=== PATIENT | female | born 1950 | race African-American/Black ===

== ENCOUNTER 2016-08-23 14:30 | Outpatient (CLI) ==
[2016-08-23 15:09] VITALS: BMI 29.7
== END 2016-08-23 14:31 | disposition home or self-care (01) ==
LOC: CAR 14:30
PROVIDERS: ATTEND Nurse Practitioner Family
DX: R03.0 Elevated blood-pressure reading, without diagnosis of hypertension (principal); R42 Dizziness and giddiness; R11.0 Nausea; I49.9 Cardiac arrhythmia, unspecified
CPT/HCPCS: 93005; 93010

== ENCOUNTER 2016-08-23 14:56 | Observation (INO) ==
[2016-08-23] MEDS ORDERED: SODIUM CHLORIDE 1,000 ML IV STA (15:02)
--- NOTE | 2016-08-23 15:07 | ED.PDOC ---
General ED Provider: Dr. KATE AGARWAL JR Chief Complaint: Dizziness Stated Complaint: Pt began getting dizzy this am, took bp at home and it was 164 /103. Went to the clinic and blood pressure was high. Was sent to get an ekg done. When they went to lay her back she states the room started spinning again. has had a banana and a halo(orange) this am [End]short of breath yesterday dizzy when lying down had been walking, in [place] yesterday for brother's surgery short of breath while walking to hospital, drove home yesterday 6p to 1230am dizzi early in morning when up better after arose for day but still present note elevated blood pressure Time Seen by Physician: 15:08 Mode of Arrival: Wheelchair Information Source: Patient Exam Limitations: No limitations Primary Care Provider: ANDRES MCCARTHY Nursing and Triage Documentation Reviewed and Agree: No Review of Systems - Review Of Systems Constitutional: Reports: Malaise Eyes: Reports: No symptoms Ears, Nose, Mouth, Throat: Reports: No symptoms Respiratory: Reports: Short of air Cardiac: Reports: No symptoms GI: Reports: No symptoms : Reports: No symptoms Musculoskeletal: Reports: No symptoms Skin: Reports: No symptoms Neurological: Reports: Weakness, Other (dizziness) Endocrine: Reports: No symptoms Hematologic/Lymphatic: Reports: No symptoms All Other Systems: Other Past Medical History - Past Medical History Endocrine: Reports: None Cardiovascular: Reports: Hypertension Respiratory: Reports: None Hematological: Reports: None Gastrointestinal: Reports: None Genitourinary: Reports: None Neuro/Psych: Reports: None Musculoskeletal: Reports: Other Cancer: Reports: None Last Menstrual Period: none - Surgical History General Surgical History: Reports: Hysterectomy, Orthopedic (shoulder spur, toes ), Back Surgery (neck) - Family History Family History: Reports: Unknown - Social History Smoking Status: Never smoker Hx Substance Use: No Alcohol Screening: None - Immunizations Tetanus Shot up to Date: No Physical Exam - Physical Exam Appearance: Well-appearing Ill-appearing: Mild Eyes: FREDA, EOMI, Conjunctiva clear ENT: Ears normal, Nose normal, Oropharynx normal Neck: Supple Respiratory: Airway patent, Breath sounds clear, Breath sounds equal, Respirations nonlabored Cardiovascular: RRR, Pulses normal, No rub, No murmur GI/: Soft, Nontender, No masses, Bowel sounds normal, No Organomegaly Musculoskeletal: Normal strength, ROM intact, No edema, No calf tenderness Skin: Warm, Dry, Normal color Neurological: Sensation intact, Motor intact, Reflexes intact, Cranial nerves intact, Alert, Oriented Interpretation - EKG Interpretation Time of EKG #1: 15:06 Rate: Keo Rhythm: Sinus (59) ST Segment: Other (bifascicular block) Physician Notification - Case Discussed Physician Notified: dr mccarthy notes ekg is unchanged from past ekgs Critical Care Note - Critical Care Note Total Time (mins): 10 Course - Course Hematology/Chemistry: 08/23/16 15:00 08/23/16 15:00 Orders, Labs, Meds: Lab Review 08/23/16 08/23/16 15:00 15:02 WBC 8.64 RBC 4.93 Hgb 14.9 Hct 44.4 MCV 90.1 MCH 30.2 MCHC 33.6 RDW Coeff of Peter 12.1 Plt Count 272 Immature Gran % (Auto) 0.2 Neut % (Auto) 72.6 Lymph % (Auto) 21.6 Chicot % (Auto) 4.9 Eos % (Auto) 0.5 Baso % (Auto) 0.2 Immature Gran # (Auto) 0.0 Neut # 6.3 Lymph # 1.9 Chicot # 0.4 Eos # 0.0 Baso # 0.0 D-Dimer 0.34 Puncture Site Rrad O2 Saturation 98.0 ABG pH 7.436 ABG pCO2 33.6 L ABG pO2 95.0 ABG HCO3 22.6 ABG Total CO2 24 ABG Base Excess -2 Ashish Test + FiO2 % 21.0 Sodium 142 Potassium 3.6 Chloride 106 Carbon Dioxide 26 Anion Gap 13.6 BUN 10 Creatinine 0.82 Estimated GFR (MDRD) 84.00 BUN/Creatinine Ratio 12.19 Glucose 104 Calcium 10.2 Total Bilirubin 0.54 AST 28 ALT 22 Alkaline Phosphatase 91 Total Creatine Kinase 296 CK-MB (CK-2) 2.4 CK-MB (CK-2) % 0.08006 Troponin I < 0.0100 B-Natriuretic Peptide 41 Total Protein 7.9 Albumin 4.3 Globulin 3.6 Albumin/Globulin Ratio 1.19 Orders Category Date Time Status ADMIT PATIENT INPATIENT .TO [facility] (MONITORED BED) ADMISSION 08/23/16 16: 53 Active ABG DRAW REQUEST Stat CARDIO 08/23/16 15:03 Completed EKG-(IP & OP ONLY) DAILY CARDIO 08/24/16 06:00 Ordered EKG-(IP & OP ONLY) DAILY CARDIO 08/25/16 06:00 Ordered EKG-(IP & OP ONLY) DAILY CARDIO 08/26/16 06:00 Ordered ACTIVITY .Early Mobilization for VTE Prevention CARE 08/23/16 16:54 Active INTAKE & OUTPUT Q8HR CARE 08/23/16 16:53 Active INTAKE & OUTPUT Q8HR CARE 08/23/16 16:54 Completed TELEMETRY MONITORING TELE CARE 08/23/16 16:54 Active VITAL SIGNS Q8HR CARE 08/23/16 16:54 Active CARDIAC DIET DIETARY 08/23/16 Dinner Ordered ED ELECTRICAL LINEMAN APPLIED .ONCE EMERGENCY 08/23/16 15:02 Active ED IV/MEDIPORT/POWERPORT .ONCE EMERGENCY 08/23/16 15:02 Active ABG Stat LAB 08/23/16 15:02 Completed B-TYPE NATRIURETIC PEPTIDE Stat LAB 08/23/16 15:00 Completed CBC W/ AUTO DIFF DAILY@0600 LAB 08/24/16 06:00 Ordered CBC W/ AUTO DIFF DAILY@0600 LAB 08/25/16 06:00 Ordered CBC W/ AUTO DIFF DAILY@0600 LAB 08/26/16 06:00 Ordered CBC W/ AUTO DIFF DAILY@0600 LAB 08/27/16 06:00 Ordered CBC W/ AUTO DIFF DAILY@0600 LAB 08/28/16 06:00 Ordered CBC W/ AUTO DIFF DAILY@0600 LAB 08/29/16 06:00 Ordered CBC W/ AUTO DIFF DAILY@0600 LAB 08/30/16 06:00 Ordered CBC W/ AUTO DIFF DAILY@0600 LAB 08/31/16 06:00 Ordered CBC W/ AUTO DIFF DAILY@0600 LAB 09/01/16 06:00 Ordered CBC W/ AUTO DIFF DAILY@0600 LAB 09/02/16 06:00 Ordered CBC W/ AUTO DIFF DAILY@0600 LAB 09/03/16 06:00 Ordered CBC W/ AUTO DIFF DAILY@0600 LAB 09/04/16 06:00 Ordered CBC W/ AUTO DIFF DAILY@0600 LAB 09/05/16 06:00 Ordered CBC W/ AUTO DIFF DAILY@0600 LAB 09/06/16 06:00 Ordered CBC W/ AUTO DIFF DAILY@0600 LAB 09/07/16 06:00 Ordered CBC W/ AUTO DIFF DAILY@0600 LAB 09/08/16 06:00 Ordered CBC W/ AUTO DIFF DAILY@0600 LAB 09/09/16 06:00 Ordered CBC W/ AUTO DIFF DAILY@0600 LAB 09/10/16 06:00 Ordered CBC W/ AUTO DIFF DAILY@0600 LAB 09/11/16 06:00 Ordered CBC W/ AUTO DIFF DAILY@0600 LAB 09/12/16 06:00 Ordered CBC W/ AUTO DIFF Stat LAB 08/23/16 15:00 Completed COMPREHENSIVE METABOLIC PANEL DAILY@0600 LAB 08/24/16 06:00 Ordered COMPREHENSIVE METABOLIC PANEL DAILY@0600 LAB 08/25/16 06:00 Ordered COMPREHENSIVE METABOLIC PANEL DAILY@0600 LAB 08/26/16 06:00 Ordered COMPREHENSIVE METABOLIC PANEL DAILY@0600 LAB 08/27/16 06:00 Ordered COMPREHENSIVE METABOLIC PANEL DAILY@0600 LAB 08/28/16 06:00 Ordered COMPREHENSIVE METABOLIC PANEL DAILY@0600 LAB 08/29/16 06:00 Ordered COMPREHENSIVE METABOLIC PANEL DAILY@0600 LAB 08/30/16 06:00 Ordered COMPREHENSIVE METABOLIC PANEL DAILY@0600 LAB 08/31/16 06:00 Ordered COMPREHENSIVE METABOLIC PANEL DAILY@0600 LAB 09/01/16 06:00 Ordered COMPREHENSIVE METABOLIC PANEL DAILY@0600 LAB 09/02/16 06:00 Ordered COMPREHENSIVE METABOLIC PANEL DAILY@0600 LAB 09/03/16 06:00 Ordered COMPREHENSIVE METABOLIC PANEL DAILY@0600 LAB 09/04/16 06:00 Ordered COMPREHENSIVE METABOLIC PANEL DAILY@0600 LAB 09/05/16 06:00 Ordered COMPREHENSIVE METABOLIC PANEL DAILY@0600 LAB 09/06/16 06:00 Ordered COMPREHENSIVE METABOLIC PANEL DAILY@0600 LAB 09/07/16 06:00 Ordered COMPREHENSIVE METABOLIC PANEL DAILY@0600 LAB 09/08/16 06:00 Ordered COMPREHENSIVE METABOLIC PANEL DAILY@0600 LAB 09/09/16 06:00 Ordered COMPREHENSIVE METABOLIC PANEL DAILY@0600 LAB 09/10/16 06:00 Ordered COMPREHENSIVE METABOLIC PANEL DAILY@0600 LAB 09/11/16 06:00 Ordered COMPREHENSIVE METABOLIC PANEL DAILY@0600 LAB 09/12/16 06:00 Ordered COMPREHENSIVE METABOLIC PANEL Stat LAB 08/23/16 15:00 Completed CREATINE KINASE Q8H LAB 08/23/16 23:00 Ordered CREATINE KINASE Q8H LAB 08/24/16 07:00 Ordered CREATINE KINASE Stat LAB 08/23/16 15:00 Completed D-DIMER Stat LAB 08/23/16 15:00 Completed TROPONIN I Q8H LAB 08/23/16 23:00 Ordered TROPONIN I Q8H LAB 08/24/16 07:00 Ordered TROPONIN I Stat LAB 08/23/16 15:00 Completed 0.9 % Sodium Chloride [Saline Flush] MEDS 08/23/16 15:02 Active 1 syr IVF PRN PRN Acetaminophen [Tylenol] MEDS 08/23/16 16:54 Active 650 mg PO Q4H PRN Amlodipine Besylate [Norvasc] MEDS 08/23/16 21:00 Once 5 mg PO ONCE ONE Amlodipine Besylate [Norvasc] MEDS 08/23/16 16:51 Discontinued 5 mg PO ONCE STA Enalaprilat Dihydrate [Vasotec IV] MEDS 08/23/16 16:21 Discontinued 1.25 mg IVP ONCE STA RESUSCITATION STATUS Routine OTHERS 08/23/16 16:53 Ordered CHEST, 1V AP ONLY Stat RADS 08/23/16 15:02 Completed Medications Generic Name Dose Route Start Last Admin Trade Name Freq PRN Reason Stop Dose Admin Acetaminophen 650 mg 08/23/16 16:54 Tylenol PO Q4H PRN Mild Pain Amlodipine Besylate 5 mg 08/23/16 21:00 Norvasc PO 08/23/16 21:01 ONCE ONE Diazepam 2 mg 08/23/16 21:00 Valium PO 08/23/16 21:01 ONCE ONE Meclizine HCl 12.5 mg 08/23/16 21:00 Antivert PO 08/23/16 21:01 ONCE ONE Non-Formulary Medication 50,000 unit 08/30/16 09:00 Cholecalciferol (Vitamin D3) [Vitamin D3] PO WEEKLY JENNIFER Non-Formulary Medication 1 each 08/24/16 09:00 Non-Formulary Medication PO DAILY JENNIFER Rosuvastatin Calcium 10 mg 08/24/16 09:00 Crestor PO DAILY JENNIFER Sodium Chloride 1 syr 08/23/16 15:02 08/23/16 16:45 Saline Flush IVF 1 syr PRN PRN Administration To flush IV Discontinued Medications Generic Name Dose Route Start Last Admin Trade Name Freq PRN Reason Stop Dose Admin Amlodipine Besylate 5 mg 08/23/16 16:51 08/23/16 17:06 Norvasc PO 08/23/16 16:52 5 mg ONCE STA Administration Enalaprilat 1.25 mg 08/23/16 16:21 08/23/16 16:42 Vasotec Iv IVP 08/23/16 16:22 1.25 mg ONCE STA Administration Vital Signs: Temp Pulse Resp BP Pulse Ox 08/23/16 14:56 97.4 F L 70 18 210/97 H 98 SHAI Risk Score SHAI Risk Score: Risk Score Odds of by 30D 0 0.1 (0.1-0.2) 1 0.3 (0.2-0.3) 2 0.4 (0.3-0.5) 3 0.7 (0.6-0.9) 4 1.2 (1.0-1.5) 5 2.2 (1.9-2.6) 6 3.0 (2.5-3.6) 7 4.8 (3.8-6.1) Departure - Departure Time of Disposition: 19:29 Disposition: ADMITTED INPATIENT Discharge Problem: Dizziness Condition: Good Pt referred to PMD for follow-up: Yes (admit dr shari ennis) Allergies/Adverse Reactions: Allergies No Known Allergies Allergy (Verified 08/23/16 15:02) Home Medications: Ambulatory Orders Cholecalciferol (Vitamin D3) [Vitamin D3] 50,000 unit PO WEEKLY 08/23/16 Rosuvastatin Calcium [Crestor] 10 mg PO DAILY 08/23/16 Trandolapril/Verapamil HCl [Tarka Er 2-240 Mg Tablet] 1 each PO DAILY 08/23/16
[2016-08-23 15:09] VITALS: BMI 29.7
[2016-08-23 15:13] LABS: BASOPHILS % (AUTO) 0.2 % (0.0-3.0); EOSINOPHILS % (AUTO) 0.5 % (0.0-7.0); HEMATOCRIT 44.4 % (37.0-47.0); HEMOGLOBIN 14.9 g/dl (12.0-16.0); IMMATURE GRANULOCYTE % (AUTO) 0.2 % (0.0-5.0); LYMPHOCYTES # (AUTO) 1.9 K/uL (0.60-3.4); LYMPHOCYTES % (AUTO) 21.6 (10.0-50.0); MEAN CORPUSCULAR HEMOGLOBIN 30.2 pg (27.0-31.0); MEAN CORPUSCULAR HGB CONC 33.6 (31.8-35.4); MEAN CORPUSCULAR VOLUME 90.1 fl (81.0-99.0); MONOCYTES # (AUTO) 0.4 K/uL (0.4-2.0); MONOCYTES % (AUTO) 4.9 (0-10); NEUTROPHILS # (AUTO) 6.3 K/ul (2.0-6.9); NEUTROPHILS % (AUTO) 72.6; PLATELET COUNT 272 10^3/uL (140-440); RED BLOOD COUNT 4.93 10^6/ul (4.20-5.40); WHITE BLOOD COUNT 8.64 K/ul (4.6-10.2)
--- NOTE | 2016-08-23 15:33 | DI ---
EXAM: Single frontal view of the chest HISTORY: Chest pain. COMPARISON: Chest x-ray 09/27/2014 FINDINGS: The cardiomediastinal silhouette is unchanged. There is no pneumothorax or pleural effusi on. There is a calcified granuloma in the right lower lung. There is no consolidation, nodule or m ass. The osseous structures are unremarkable. IMPRESSION: No acute cardiopulmonary process.
[2016-08-23 15:34] LABS: ABG BASE EXCESS -2 (-2.0-2.0); ABG HCO3 22.6 (22.0-26.0); ABG PCO2 33.6 mmHg (35-45); ABG PH 7.436 (7.35-7.45); ABG TCO2 24 (22.0-28.0)
[2016-08-23 15:57] LABS: ALANINE AMINOTRANSFERASE 22 U/L (12-78); ALBUMIN 4.3 g/dL (3.4-5.0); ALBUMIN/GLOBULIN RATIO 1.19; ALKALINE PHOSPHATASE 91 U/L (53-141); ANION GAP 13.6; ASPARTATE AMINO TRANSFERASE 28 U/L (15-37); BILIRUBIN,TOTAL 0.54 mg/dL (0.00-1.20); BLOOD UREA NITROGEN 10 mg/dL (7-18); BUN/CREATININE RATIO 12.19; CALCIUM 10.2 mg/dL (8.2-10.2); CARBON DIOXIDE 26 mmol/L (23-31); CHLORIDE 106 mmol/L (98-107); CREATINE KINASE 296 U/L; CREATININE 0.82 mg/dL (0.60-1.30); GLUCOSE 104 mg/dL (82-115); POTASSIUM 3.6 mmol/L (3.5-5.10); SODIUM 142 mmol/L (136-145); TOTAL PROTEIN 7.9 g/dL (5.8-8.1)
[2016-08-23 16:05] LABS: CREATINE KINASE MB 2.4 ng/ml (0.0-3.6)
[2016-08-23] MEDS ORDERED: VASOTEC IV IVP STA (16:21)
[2016-08-23] MEDS ORDERED: NORVASC PO STA (16:51)
[2016-08-23] MEDS ORDERED: TYLENOL PO PRN (16:54)
[2016-08-23] MEDS ORDERED: VALIUM ONE (20:34)
[2016-08-23] MEDS ORDERED: VALIUM PO ONE (21:00)
[2016-08-23] MEDS ORDERED: ANTIVERT PO ONE (21:00)
[2016-08-23] MEDS ORDERED: NORVASC PO ONE (21:00)
[2016-08-23 23:18] LABS: CREATINE KINASE 249 U/L; CREATINE KINASE MB 2.1 ng/ml (0.0-3.6)
[2016-08-24 07:08] LABS: BASOPHILS % (AUTO) 0.6 % (0.0-3.0); EOSINOPHILS # (AUTO) 0.1 K/ul (0.0-0.7); HEMATOCRIT 43.6 % (37.0-47.0); HEMOGLOBIN 14.6 g/dl (12.0-16.0); IMMATURE GRANULOCYTE % (AUTO) 0.3 % (0.0-5.0); LYMPHOCYTES # (AUTO) 1.5 K/uL (0.60-3.4); LYMPHOCYTES % (AUTO) 23.5 (10.0-50.0); MEAN CORPUSCULAR HEMOGLOBIN 30.4 pg (27.0-31.0); MEAN CORPUSCULAR HGB CONC 33.5 (31.8-35.4); MEAN CORPUSCULAR VOLUME 90.8 fl (81.0-99.0); MONOCYTES # (AUTO) 0.5 K/uL (0.4-2.0); MONOCYTES % (AUTO) 7.7 (0-10); NEUTROPHILS # (AUTO) 4.3 K/ul (2.0-6.9); NEUTROPHILS % (AUTO) 65.9; PLATELET COUNT 255 10^3/uL (140-440); WHITE BLOOD COUNT 6.46 K/ul (4.6-10.2)
[2016-08-24 07:28] LABS: ALBUMIN 3.8 g/dL (3.4-5.0); ALBUMIN/GLOBULIN RATIO 1.09; ANION GAP 13.5; BILIRUBIN,TOTAL 0.49 mg/dL (0.00-1.20); CALCIUM 9.9 mg/dL (8.2-10.2); CREATININE 0.9 mg/dL (0.60-1.30); POTASSIUM 3.5 mmol/L (3.5-5.10); TOTAL PROTEIN 7.3 g/dL (5.8-8.1)
[2016-08-24 07:44] LABS: TROPONIN I 0.013 ng/ml (0.0000-0.4000)
[2016-08-24 07:46] LABS: CREATINE KINASE MB 1.5 ng/ml (0.0-3.6)
[2016-08-24] MEDS ORDERED: ZOFRAN 4 MG/2 ML IVP STA (08:21)
[2016-08-24] MEDS ORDERED: NORVASC PO SCH (09:00)
[2016-08-24] MEDS ORDERED: VERAPAMIL HCL PO SCH ×21 (09:00)
[2016-08-24] MEDS ORDERED: BETAPACE PO SCH (09:00)
[2016-08-24] MEDS ORDERED: COZAAR PO SCH (09:00)
[2016-08-24] MEDS ORDERED: NON-FORMULARY MEDICATION PO SCH ×22 (09:00)
[2016-08-24] MEDS ORDERED: TRANDOLAPRIL PO SCH ×21 (09:00)
[2016-08-24 10:03] VITALS: BP 146/76; TEMP 97.8
--- NOTE | 2016-08-24 10:30 | HP ---
DATE OF SERVICE: 08/23/16 REASON FOR HOSPITALIZATION: Dizziness and shortness of breath with exertion and Severe hypertension HISTORY OF PRESENT ILLNESS: The patient is a 66 year old black female was seen in the emergency room after she was evaluated for dizziness in the [facility]. The patient was noted to have extra beats or skipped beats on auscultation so she was sent for EKG and the EKG was reported as abnormal with RBB, LVH and she ended up in the emergency room with hypertension, dizziness and abnormal EKG. On further evaluation in the emergency room that patient's cardiac markers were negative. The patient has sinus rhythm with RBB type of pattern even EKG's in done in the past. REVIEW OF SYSTEMS: CONSTITUTIONAL: No night sweats. Fatigue. No fever or chills. HEENT: Eyes: No visual changes. No eye pain. No eye discharge. ENT: No runny nose. No epistaxis. No sinus pain. No sore throat. No odynophagia. No ear pain. No congestion. RESPIRATORY: No cough, no congestion. No hemoptysis. CARDIOVASCULAR: No angina symptoms. No CHF symptoms. No atypical chest pain for CAD. No palpitations. Shortness of breath on exertion. No PND. No orthopnea. No exertional chest discomfort. GASTROINTESTINAL: No abdominal pain. Mild nausea. No vomiting. No diarrhea or constipation. No hematemesis. No hematochezia. GENITOURINARY: No urgency. No frequency. No dysuria. No hematuria. No obstructive symptoms. No discharge. No pain. No significant abnormal bleeding. MUSCULOSKELETAL: No musculoskeletal pain. No joint swelling. No arthritis. NEUROLOGICAL: No headache. No neck pain. No syncope. No seizures. Mild dizziness and some nausea with it and also with the head movement. PSYCHIATRIC: Not anxious. No depression. No suicidal thoughts. No homicidal thoughts. SKIN: No rash. No lesions. No wounds. ENDOCRINE: No unexplained weight loss. No weight gain. HEMATOLOGIC/LYMPHATIC: No anemia. No purpura. No petechiae. No prolonged or excessive bleeding. No palpable lymph nodes. PERSONAL/FAMILY/SOCIAL HISTORY: The patient lives by herself. No smoker, no alcohol abuse and does all activity of daily living. Independent and intelligent PAST MEDICAL/SURGICAL PROBLEMS: Hysterectomy Generalized osteoarthritis Hypertension Lymphedema of the legs, resolved MEDICATIONS: Vitamin D3 Rosuvastatin 10mg PO daily Tarka ER 2-240mg PO daily ALLERGIES: None. PHYSICAL EXAMINATION: GENERAL: The patient is oriented to time, place and person. VITAL SIGNS: Temperature 97.4, pulse 70, respiratory rate 18, blood pressure 210/100 and pulse ox 98%. HEENT: Head normocephalic, atraumatic. Eyes: Extraocular muscles are intact. Pupils are equal, round and reactive to light and accommodation. Ears: No lesions. Nose appeared normal. Throat: No exudate or erythema. NECK: Supple. No JVP, no carotid bruit. No lymphadenopathy or thyromegaly. LUNGS: Clear to auscultation. Percussion note normal. Chest symmetrical. HEART: S1, S2, no S3. No murmurs. No cyanosis or clubbing. No ascites. Pulses: Dorsalis pedis and posterior tibial pulses +1 to +2 both sides. ABDOMEN: Soft. Nontender. Bowel sounds active. No CVA tenderness. No mass felt. EXTREMITIES: No edema. Full range of motion of all extremities, equal. NEUROLOGIC: No focal deficit. Cranial nerves II through XII are grossly intact. No headache, no double vision or headache. SKIN: Not dry. Intact. Turgor - normal. LYMPHATIC: No palpable lymph nodes/no lymphedema. MUSCULOSKELETAL: Normal joints with no swelling. Muscle tone is normal. LABS: Hgb 14.9, hct 44, WBC 8,600 normal differential. Atrial blood gasses pH 7.43, pO2 95, pCO2 33 with 98% saturation. Chest x-ray normal, EKG sinus rhythm right bundle branch type of pattern, LVH, creatinine 0.8, BUN 10, potassium 3.6, glucose 104 and d-dimer negative. ASSESSMENT: 1. Shortness of breath which is exertional 2. Dizziness likely vestibular disfunction with head movement with nausea 3. History of hypertension 4. History of dyslipidemia 5. Abnormal EKG, unchanged from the one that she had done before PLAN: 1. Holter telemetry orders 2. Serial cardiac markers 3. Will increase Tarka to 4mg with Verapamil of 240 4. Vasotec and extra Norvasc was given, the blood pressure is well controlled at present time. Blood pressure 130/72. 5. Carotid scan 6. Echo 2D M mode to evaluate LV function. 7. With abnormal EKG will do stress echo sestamibi in the morning. TIME SPENT: More than 70 minutes. MTDD
--- NOTE | 2016-08-24 11:29 | NM ---
Cardiac Stress Test HISTORY: Abnormal EKG. Dizziness. Diabetes mellitus. COMPARISON: None of this type. TECHNIQUE: Resting: The patient was injected with 31.9 mCi of 99m technetium Sestamibi (Cardiolite) intravenou sly after which a "resting" SPECT study of the heart was performed. Stress: The patient was stressed using a Jose protocol and at the appropriate time injected with 1 3.4 mCi of 99m technetium Sestamibi (Cardiolite) after which a "stress" SPECT study of the heart was performed. Gated images of the heart were also obtained to assess wall motion and calculate ejectio n fraction. For details of the stress protocol employed, reference is made to the separate report o f the performing physician. FINDINGS: The stress perfusion images demonstrate a generally uniform distribution of activity in t he left ventricular myocardium. There is a modest reduction in activity at the left ventricular apex which appears fixed and may represent apical thinning or possibly breast attenuation artifact. The resting perfusion images demonstrate no evidence of significant redistribution/ischemia. The left ventricular ejection fraction (LVEF) is 64 %. The left ventricular wall motion is within normal limits. IMPRESSION: 1. Left ventricular myocardial perfusion is within normal limits. 2. The left ventricular ejection fraction (LVEF) is 64 %. 3. The left ventricular wall motion is within normal limits.
--- NOTE | 2016-08-24 12:03 | US ---
EXAM: Ultrasound bilateral carotid duplex. HISTORY: Hypertension. Dizziness. Vertigo. COMPARISON: 02/09/2009. TECHNIQUE: Multiple gonsales scale and color Doppler images were obtained. FINDINGS: Please note that estimates of internal carotid artery stenoses are based upon NASCET gorge kwon. Right carotid: Mild plaquing noted without 50% or greater stenosis. Peak systolic velocity measure ment in the right internal carotid artery is 0.6 meters per second. Right internal to common caroti d artery peak systolic velocity ratio measures 1.0. End diastolic velocity measurement in the right internal carotid artery is 0.1 meters per second. Flow in the right vertebral artery is antegrade. Left carotid: Mild plaquing noted without 50% or greater stenosis. Peak systolic velocity measurem ent in the left internal carotid artery is 0.7 meters per second. Left internal to common carotid a rtery peak systolic velocity ratio measures 1.1. End diastolic velocity measurement in the left int ernal carotid artery measures 0.2 meters per second. Flow in the left vertebral artery is antegrade . IMPRESSION: 1. No evidence for 50% or greater stenosis in the right or left internal carotid artery. 2. Antegrade flow in both vertebral arteries.
--- NOTE | 2016-08-24 14:38 | CT ---
EXAM: CT Head HISTORY: Dizziness, near-syncope, severe hypertension COMPARISON: None TECHNIQUE: CT head performed without contrast FINDINGS: There is no mass effect, midline shift, or intracranial hemmorhage. Carranza white different iation is preserved. There is no extra-axial collection. The ventricles, sulci, and basal cisterns are patent and symmetric. There is chronic ischemic disease of the white matter and cerebral volum e loss There is no depressed calvarial fracture. The mastoid air cells are clear. The visualized pa ranasal sinuses are clear. There are intracranial atherosclerotic calcifications. IMPRESSION: 1. No acute intracranial abnormality. 2. Chronic ischemic disease of the white matter and cerebral volume loss.
[2016-08-24] MEDS ORDERED: CRESTOR PO SCH (17:00)
--- NOTE | 2016-08-27 12:16 | STECHESEMD ---
Date of Test: 08/24/16 Reason for Exam: DIZZINESS, ABNORMAL EKG, HYPERTENSION Ordering Physician: ANDRES ROSSI Current Medications: NORVASC, VERAPAMIL, CRESTOR Physical Findings: S1, S2, NO S3 Resting EKG: SINUS RHYTHM/ RIGHT BUNDLE BRANCH BLOCK Target Heart Rate: 129/152 STAGE MPH/GRADE HEART RATE BPM BLOOD PRESSURE mmhg RHYTHM S-T SEGMENT UP DOWN SYMPTOMS,COMMENTS At Rest 73 130/88 SR X NONE 1 1.7/0% 100 148/88 SR X NONE 2 1.7/5% 115 176/88 SR X NONE 3 1.7/10% 4 2.5/12% 5 3.4/14% Immediately after 130 SR X FATIGUE Total Time: 7:29 Maximum Heart Rate Reached: 130 Reason for Termination: FATIGUE 3 MIN POST EXERCISE: 77 HR, 162/76 MMHG, SR, S-T SEGMENT +/- INTERPRETATION: 98% OXYGEN SATURATION WITH EXERCISE ON ROOM AIR METS 7.0 1. TEST NEGATIVE FOR ISCHEMIC ST-T WAVE CHANGES 2. NO CHEST PAIN OR CHEST DISCOMFORT 3. PVC'S NOTED AT REST AND WITH EXERCISE 4. BLOOD PRESSURE RESPONSE: SYSTOLIC HYPERTENSION WITH EXERCISE NORMAL LEFT VENTRICULAR CONTRACTILITY--RESTING AND POST EXERCISE MTDD
--- NOTE | 2016-08-29 08:35 | ECHOSTRESS ---
Date of Exam: 08/24/16 Ordering Physician: ANDRES ROSSI Reason for Echo: DIZZINESS, ABNORMAL EKG, HYPERTENSION, STRESS TEST--NO ISCHEMIA M-Mode Normal Adult Results LV Dimensions Normal Adult Results AoV Opening excursions >1.6 LVEDD-base- 3.5-5.8 Ao root dimensions 2.0-3.7 LVESD-base- 3.1-4.6 L. Atrium dimensions 1.9-3.8 Post. Wall thickness 0.8-1.1 IV septum (thickness) 0.7-1.2 Post. Wall excursion 0.72-1.3 Septal motion Systolic motion R. Ventricular cavity 1.5-2.0 LVEF 60% Paradoxical septal wall motion 2-D: NORMAL LEFT VENTRICULAR CONTRACTILITY--RESTING AND POST EXERCISE M-MODE: MV: AV: TV: PV: CHAMBER SIZE: WALL MOTION: NORMAL LEFT VENTRICULAR CONTRACTILITY--RESTING AND POST EXERCISE PERICARDIUM: INTERPRETATION: 1. NORMAL LEFT VENTRICULAR CONTRACTILITY--RESTING AND POST EXERCISE MTDD
--- NOTE | 2016-08-29 08:42 | ECHO2D ---
Date of Exam: 08/24/16 Ordering Physician: ANDRES ROSSI Reason for Echo: DIZZINESS, ABNORMAL EKG, HYPERTENSION M-Mode Normal Adult Results LV Dimensions Normal Adult Results AoV Opening excursions >1.6 >1.6 LVEDD-base- 3.5-5.8 3.9 Ao root dimensions 2.0-3.7 2.9 LVESD-base- 3.1-4.6 L. Atrium dimensions 1.9-3.8 3.9 Post. Wall thickness 0.8-1.1 1.2 IV septum (thickness) 0.7-1.2 1.4 Post. Wall excursion 0.72-1.3 NORMAL Septal motion NORMAL Systolic motion R. Ventricular cavity 1.5-2.0 NORMAL LVEF 60% 66% Paradoxical septal wall motion NORMAL 2-D : CALCIFIC AORTIC VALVES -- OTHER LEIGH --2-D M Mode Echocardiogram was performed using apical four chamber and left parasternal long and short axis views. Mitral & tricuspid valves appear to be normal. Contractility of the left ventricle seems to be normal, so is the cavity size. Left atrial cavity size and aortic root appear to be normal. There is no pericardial effusion. There is no thrombus noted in the left ventricular or left aortic cavity. No mitral valve prolapse noted. M-MODE: MV: NORMAL AV: CALCIFIC AORTIC VALVES--NO STENOSIS TV: NORMAL PV: NORMAL CHAMBER SIZE: NORMAL WALL MOTION: NORMAL PERICARDIUM: NORMAL INTERPRETATION: 1. LEFT VENTRICULAR HYPERTROPHY 2. CALCIFIC AORTIC VALVE--MAYBE BICUSPID 3. NORMAL LEFT VENTRICULAR CONTRACTILITY 4. NORMAL LEFT VENTRICLE AND LEFT ATRIAL SIZE MTDD
[2016-08-30] MEDS ORDERED: NON-FORMULARY MEDICATION (Cholecalciferol (Vitamin D3) [Vitamin D3] 50,000 UNIT) PO SCH (09:00)
--- NOTE | 2016-08-30 09:06 | PN ---
DATE OF SERVICE: 08/24/16 SUBJECTIVE: The patient is a 66 year old black female hospitalized with shortness of breath , hypertension and dizziness. The patient has been worked up for coronary artery disease because of abnormal EKG. Shortness of breath with exertion with several risk factors for coronary artery disease. REVIEW OF SYSTEMS: CONSTITUTIONAL: No night sweats. No fatigue, malaise, lethargy. No fever or chills. HEENT: Eyes: No visual changes. No eye pain. No eye discharge. ENT: No runny nose. No epistaxis. No sinus pain. No sore throat. No odynophagia. No congestion. RESPIRATORY: No cough, no congestion. No hemoptysis. CARDIOVASCULAR: No angina symptoms. No CHF symptoms. No atypical chest pain for CAD. No palpitations. No shortness of breath. GASTROINTESTINAL: No abdominal pain. No nausea or vomiting. No diarrhea or constipation. No hematemesis. No hematochezia. GENITOURINARY: No urgency. No frequency. No dysuria. No hematuria. No obstructive symptoms. No discharge. No pain. No significant abnormal bleeding. MUSCULOSKELETAL: No musculoskeletal pain; no joint swelling. NEUROLOGICAL: No headache. No neck pain. No syncope. No seizures. Mild dizziness. PSYCHIATRIC: Not anxious. No depression. No suicidal thoughts. No homicidal thoughts. SKIN: No rash. No lesions. No wounds. ENDOCRINE: No unexplained weight loss. No weight gain. HEMATOLOGIC/LYMPHATIC: No anemia. No purpura. No petechiae. No prolonged or excessive bleeding. No palpable lymph nodes. PHYSICAL EXAMINATION: GENERAL: The patient is oriented to time, place and person. VITAL SIGNS: Temperature 97, pulse 55, respiratory rate 16, blood pressure 148/ 56 and pulse ox 97%. HEENT: Head normocephalic, atraumatic. Eyes: Extraocular muscles are intact. Pupils are equal, round and reactive to light and accommodation. Ears: No lesions. Nose appeared normal. Throat: No exudate or erythema. NECK: Supple. No JVD, no carotid bruit. No lymphadenopathy or thyromegaly. LUNGS: Clear to auscultation. Percussion note normal. Chest symmetrical. HEART: S1, S2, no S3. No murmurs. No cyanosis or clubbing. No ascites. Pulses: Dorsalis pedis and posterior tibial pulses +1 to +2 both sides. ABDOMEN: Soft. Nontender. Bowel sounds active. No CVA tenderness. No mass felt. EXTREMITIES: No edema. Full range of motion of all extremities, equal. NEUROLOGIC: No focal deficit. Cranial nerves II through XII are grossly intact. No headache, no double vision or headache. SKIN: Not dry. Intact. Turgor - normal. LYMPHATIC: No palpable lymph nodes/no lymphedema. MUSCULOSKELETAL: Normal joints with no swelling. Muscle tone is normal. LABS: BNP normal, D-dimer negative, CK-MB negative, EKG Right bundle branch type of pattern, fascicular blocks and sinus rhythm, The patient had a stress echo done which was negative for ischemia. Echo showed normal LV contractility, normal valves and sestamibi was also negative for ischemia. The patient had carotid scan which was negative. CT scan of the head was also negative. ASSESSMENT: 1. Dizziness 2. Light headedness 3. Vertigo type of symptoms with mild nausea likely vestibular dysfunction. 4. Hypertension 5. Dyslipidemia 6. BMI 30 CONDITION: Stable. TIME SPENT: More than 30 minutes. Plan and coordination of the patient's care discussed in the presence of nurse. SHAILESH
--- NOTE | 2016-08-30 09:10 | DS ---
DATE OF SERVICE: 08/24/16 FINAL DIAGNOSIS: 1. Dizziness 2. Light headedness 3. Vertigo type of symptoms with mild nausea likely vestibular dysfunction. 4. Hypertension 5. Dyslipidemia 6. BMI 30 DISCHARGE INSTRUCTIONS: Discharge home today. Return to see Dr. Vega in 5-7 days. Resume home medications as per list provided by nursing staff. MEDICATIONS AT DISCHARGE: Discharge medications: Hyzaar 100-12.5mg PO daily Verapamil 240mg PO at night Rosuvastatin as before Baby aspirin daily 81mg NEW PRESCRIPTIONS: Hyzaar 100-12.5mg take one tablet by mouth every morning Verapamil 240mg take one tablet by mouth every evening at bedtime Aspirin Enteric coated 81mg, take one tablet by mouth every morning (over the counter) DIET INSTRUCTIONS: Healthy heart as tolerated Stay well hydrated. ACTIVITY: Get plenty of rest at home. Gradually increase activity level according to toleration. SMOKING: Non-smoker DISEASE SPECIFIC EDUCATION: New Medications Medication Changes Diet HOSPITAL COURSE: The patient is a 66 year old black female with fatigue, shortness of breath with exertion, hypertension. The patient's work up echo, stress echo, cardiac markers are all negative for ischemia. The patient's telemetry did not show any ST-T wave changes. The patient also had carotid scan which was negative. The vestibular neuronitis practically subsided. Next she was given 2m Morphine with Antivert 12.5. The patient has PVC noted on a stress test or even on the monitor and seem to be asymptomatic and hemodynamically not significant, she was taken off Tarka. New medications were discussed with her. The patient is also counseled about weight loss and dash diet. TIME SPENT: More than 60 minutes. SHAILESH
== END 2016-08-24 15:01 | disposition home or self-care (01) ==
LOC: ED 14:56 → INTOOBSV 17:30 → MEDSURG B 17:30
PROVIDERS: ADMIT Internal Medicine; ATTEND Internal Medicine
DX: R42 Dizziness and giddiness (principal); R06.02 Shortness of breath; I10 Essential (primary) hypertension; I49.9 Cardiac arrhythmia, unspecified; E78.5 Hyperlipidemia, unspecified; R11.0 Nausea; Z68.30 Body mass index [BMI] 30.0-30.9, adult; Z79.899 Other long term (current) drug therapy
CPT/HCPCS: 36415; 80053; 82550; 82553; 82803; 83880; 84484; 85025; 85379; 93005; 93010; 96374; 99284; 99285

== ENCOUNTER 2016-12-12 07:55 | Outpatient (CLI) | payer OTHER ==
[2016-12-12 08:29] LABS: CREATININE 1.03 mg/dL (0.60-1.30)
[2016-12-12 08:45] LABS: ERYTHROCYTE SEDIMENTATION RATE 27 mm/hr (0-20); ESR INTERNAL QC INTERNAL QC VALID
--- NOTE | 2016-12-12 09:19 | CT ---
EXAM: CT of the chest with contrast History: Wheezing, sarcoidosis. Comparison: Chest radiograph 08/23/2016, chest CT 12/28/2008 Technique: Multiplanar CT images through the thorax were obtained following administration of IV co ntrast Findings: Heart size is mildly enlarged. Coronary artery calcifications. Great vessels are unrema rkable. Multiple enlarged and partially calcified mediastinal and bilateral hilar lymph nodes, simil ar to the prior study. There is bronchial wall thickening seen on the right and there is increasing right middle lobe atelectasis or pneumonia. Multiple sub-centimeter bilateral lung nodules are not significantly change compared to the prior study. There is new mild ground-glass infiltrate within t he right lower lobe. No pneumothorax and no pleural fluid. Within the visualized upper abdomen, fatty liver. No acute osseous abnormalities. Mild to moderate degenerative disc disease of the thoracic spine. Impression: 1. No significant interval change in the enlarged partially calcified mediastinal and bilateral hil ar lymph nodes most compatible with the history of sarcoidosis. 2. There is increasing right middle lobe atelectasis or pneumonia which is probably postobstructive and related to the bronchial wall thickening. An underlying malignant obstructing lesion cannot be excluded and follow-up recommended. Bronchoscopy might be needed. 3. New mild ground-glass infiltrate within the right lower lobe. 4. No significant interval change in the bilateral lung nodules. 5. Hepatic steatosis. 6. Mild cardiomegaly and coronary artery disease.
== END 2016-12-12 07:56 | disposition home or self-care (01) ==
LOC: RAD 07:55
PROVIDERS: ATTEND Internal Medicine
DX: R06.2 Wheezing (principal); D86.9 Sarcoidosis, unspecified
CPT/HCPCS: 36415; 82565; 85651; 86140

== ENCOUNTER 2016-12-20 12:25 | Outpatient (CLI) ==
[2016-12-20 12:57] LABS: ABG BASE EXCESS 1 (-2.0-2.0); ABG HCO3 24.9 (22.0-26.0); ABG PCO2 36.2 mmHg (35-45); ABG PH 7.445 (7.35-7.45); ABG TCO2 26 (22.0-28.0)
== END 2016-12-20 12:26 | disposition home or self-care (01) ==
LOC: CAR 12:25
PROVIDERS: ATTEND Internal Medicine
DX: R06.02 Shortness of breath (principal)
CPT/HCPCS: 36415; 82803; 83880

== ENCOUNTER 2017-06-18 09:49 | Outpatient (CLI) ==
--- NOTE | 2017-06-18 10:42 | CT ---
EXAM: CT chest without contrast. HISTORY: Sarcoidosis. Follow-up. COMPARISON: 12/12/2016. TECHNIQUE: Multiple axial images of the chest were obtained without intravenous contrast. Images we re reformatted in the sagittal and coronal planes. FINDINGS: Numerous calcified lymph nodes present in the mediastinum and both hilar regions, similar to the prior study. Right hilar lymph nodes cause narrowing of the right middle lobe bronchus, and t here is right middle lobe consolidation with air bronchograms. Band-like opacities seen in the lingu la and both lower lobes. Peribronchovascular and random nodules are seen throughout both lungs, whic h are not significantly changed. No new nodules, consolidation, pleural effusion or pneumothorax willian ntified. Heart is borderline enlarged. No pericardial effusion identified. Atherosclerotic calcifications pr esent in the aorta and coronary arteries. Limited images of the upper abdomen demonstrate no acute finding. Osseous structures are unremarkabl e. IMPRESSION: 1. Stable calcified mediastinal and hilar lymphadenopathy. 2. Stable peribronchovascular and random nodules. 3. Stable right middle lobe bronchial narrowing with right middle lobe consolidation and additional band-like areas of consolidation in both lung bases.
== END 2017-06-18 09:50 | disposition home or self-care (01) ==
LOC: RAD 09:49
PROVIDERS: ATTEND Student in an Organized Health Care Education/Training Program
DX: D86.0 Sarcoidosis of lung (principal)

== ENCOUNTER 2023-06-16 18:36 | Inpatient (IN) ==
--- NOTE | 2023-06-16 19:04 | ED.PDOC ---
General ED Provider: Dr. EDWAR FERGUSON MD Chief Complaint: Shortness of Air Stated Complaint: Pt presents to ER from home c/o shortness of breath and sore throat. Reports onset was at approx 02:30 today. States she's been drinking a lot of water and tea to try to help soothe her throat. Says that she has high blood pressure so has been avoiding taking any NSAIDs for pain relief. Denies F/C/N/V/D/chest pressure/pain. No other complaints. Time Seen by Provider: 06/16/23 19:01 Mode of Arrival: Walk-In Information Source: Patient Primary Care Provider: ANDRES VEGA MD Nursing and Triage Documentation Reviewed and Agree: Yes Review of Systems Review Of Systems Constitutional: Reports No symptoms All Other Systems: Reviewed and Negative [facility] Medical History Hypertension I10 - Essential (primary) hypertension (ICD-10) Hyperlipidemia E78.5 - Hyperlipidemia, unspecified (ICD-10) Family History Mother Cerebrovascular accident Other Kidney disease Social History Smoking and tobacco status: Never smoker Second hand smoke exposure: No Smoking risk assessment performed: No Alcohol intake: never Counseling given: No Substance use type: does not use Rajni/episcopalian: SIKH Special rajni needs: No Agree to transfusion: Yes Adopted: No Caregiver/support person: No Foster care: No Household members: none Housing: house Marital status: S SINGLE Lives independently: Yes Daycare: no daycare Number of children: 0 service: No MCC: No Current occupational status: retired History of recent travel: No Do you think of yourself as: straight/heterosexual Current gender identity: female Seatbelt use: always Helmet use: No Drives intoxicated or rides with intoxicated wood pile driver operator: No Water heater temperature set < 120 degrees: Yes Working smoke detector in home: Yes Fire extinguisher in home: Yes Carbon monoxide detector in home: Yes Surgical History shoulder surgery spurs removed right shoulder neck surgery titanium disc neck hammer toes bilateral feet Status post hysterectomy Z90.710 - Acquired absence of both cervix and uterus (ICD-10) Female Reproductive History Menstrual Hx Hysterectomy: Yes Hx Tubal Ligation: No Physical Exam Physical Exam Appearance: Reports Ill-appearing Ill-appearing: Mild Pain Distress: Mild Eyes: Reports FREDA and EOMI ENT: Reports Ears normal, Nose normal and Oropharynx normal Neck: Supple Respiratory: Reports Airway patent, Breath sounds clear and Breath sounds diminished (L>R diminished breath sounds.) Cardiovascular: Reports RRR, Pulses normal and Murmur GI/: Reports Soft and Nontender Musculoskeletal: Reports Normal strength, ROM intact and Edema (R, foot: +1; L, foot: trace) Skin: Reports Warm and Dry Neurological: Reports Sensation intact and Motor intact Psychiatric: Reports Affect appropriate Interpretation EKG Interpretation EKG Interpretation By: ED Physician Time of EKG #1: 19:17 Rate: Normal Rhythm: Sinus Ectopy: None [place]: Left Interpretation: NSR, RBBB, LAFB (old) interpreted by me. EKG Comparison: No significant changes (compared to EKG on 08/22/20, 12:53 and 08/24/16, 05:05.) Critical Care Note Critical Care Note Total Critical Care Time (mins): 60 Course Course 06/16/23 19:06 06/16/23 19:06 Orders, Labs, Meds: Lab Review 06/16/23 06/16/23 06/16/23 19:04 19:06 19:10 WBC 12.72 H RBC 4.18 L Hgb 12.5 Hct 38.2 MCV 91.4 MCH 29.9 MCHC 32.7 RDW Coeff of Peter 12.8 Plt Count 148 Immature Gran % (Auto) 0.2 Neut % (Auto) 77.0 H Lymph % (Auto) 14.3 [place] % (Auto) 6.6 Eos % (Auto) 1.7 Baso % (Auto) 0.2 Neut # (Auto) 9.8 H Lymph # (Auto) 1.8 [place] # (Auto) 0.8 Eos # (Auto) 0.2 Baso # (Auto) 0.0 Immature Gran # (Auto) 0.0 Sodium 139.1 Potassium 3.31 L Chloride 106.2 Carbon Dioxide 26.7 Anion Gap 9.51 BUN 14.9 Creatinine 0.79 Estimated GFR (MDRD) 86.00 BUN/Creatinine Ratio 18.86 Glucose 105.1 Calcium 9.93 Magnesium Total Bilirubin 0.67 AST 36.1 H ALT 23.9 Alkaline Phosphatase 71.5 Troponin I < 0.012 Total Protein 7.45 Albumin 4.17 Globulin 3.28 Albumin/Globulin Ratio 1.27 D-Dimer 640.27 H Influ A Molecular Assay Negative by naat Influ B Molecular Assay Negative by naat RSV Antigen Negative by naat SARS CoV-2 RNA Rapid DIANE Negative 06/16/23 19:58 WBC RBC Hgb Hct MCV MCH MCHC RDW Coeff of Peter Plt Count Immature Gran % (Auto) Neut % (Auto) Lymph % (Auto) [place] % (Auto) Eos % (Auto) Baso % (Auto) Neut # (Auto) Lymph # (Auto) [place] # (Auto) Eos # (Auto) Baso # (Auto) Immature Gran # (Auto) Sodium Potassium Chloride Carbon Dioxide Anion Gap BUN Creatinine Estimated GFR (MDRD) BUN/Creatinine Ratio Glucose Calcium Magnesium 1.80 Total Bilirubin AST ALT Alkaline Phosphatase Troponin I Total Protein Albumin Globulin Albumin/Globulin Ratio D-Dimer Influ A Molecular Assay Influ B Molecular Assay RSV Antigen SARS CoV-2 RNA Rapid DIANE Orders Category Date Time Status ADMIT OBSERVATION [PLACE PATIENT OBSERVATION] .TO ADMISSION 06/16/23 22:29 Active SCU (MONITORED BED) EKG-(ED ONLY) Stat CARDIO 06/16/23 19:06 Completed ACTIVITY .Up With Assistance CARE 06/16/23 22:26 Active CONTINUOUS PULSE OX (NURSING) PULSEOX CARE 06/16/23 19:04 Active INTAKE & OUTPUT Q8HR CARE 06/16/23 22:26 Active NPO REMINDER: IMAGING ONCE CARE 06/16/23 19:55 Completed TELEMETRY MONITORING TELE CARE 06/16/23 22:29 Active CARDIAC DIET DIETARY 06/17/23 Breakfast Ordered Nurse Research [ED PIT FURNACE MELTER APPLIED] .ONCE EMERGENCY 06/16/23 19:04 Active CBC W/ AUTO DIFF DAILY@0600 LAB 06/17/23 06:00 Ordered CBC W/ AUTO DIFF DAILY@0600 LAB 06/18/23 06:00 Ordered CBC W/ AUTO DIFF Stat LAB 06/16/23 19:06 Completed CMP [COMPREHENSIVE METABOLIC PANEL] Stat LAB 06/16/23 19:06 Completed COMPREHENSIVE METABOLIC PANEL DAILY@0600 LAB 06/17/23 06:00 Ordered COMPREHENSIVE METABOLIC PANEL DAILY@0600 LAB 06/18/23 06:00 Ordered D-DIMER Stat LAB 06/16/23 19:10 Completed FLU A & B MOLECULAR [FLU A/B MOLECULAR] Stat LAB 06/16/23 19:04 Completed MAGNESIUM Stat LAB 06/16/23 19:58 Completed PROBNP ED [NT-PROBNP(ED)] Stat LAB 06/16/23 Completed RAPID STREP SCREEN [MOLECULAR GROUP A STREP] Stat LAB 06/16/23 19:04 Completed RSV Stat LAB 06/16/23 19:04 Completed SARS COV-2 RNA RAPID DIANE Stat LAB 06/16/23 19:04 Completed TROPONIN I Stat LAB 06/16/23 19:06 Completed Acetaminophen Meds 06/16/23 19:07 Discontinued 1,000 mg in 100 ml IV ONCE Acetaminophen [Tylenol] Meds 06/16/23 22:26 Active 650 mg PO Q4H PRN Furosemide [Lasix] Meds 06/16/23 20:05 Discontinued 40 mg IVP ONCE STA Nicardipine in NaCl, Iso-Osm [Cardene 20 mg/200 ml NaCl Meds 06/16/23 22:00 Active ] 20 mg in 200 ml IV TITRATION Ondansetron HCl/Pf [Zofran 4 mg/2 ml] Meds 06/16/23 22:26 Active 4 mg IVP Q6H PRN Potassium Chloride [Potassium Chloride 20 Meq/100 ml Meds 06/16/23 19:58 Active Premix] 40 meq in 200 ml IV ONCE CHEST, 1V AP ONLY Stat RADS 06/16/23 19:05 Completed CTA CHEST PE PROTOCOL Stat RADS 06/16/23 19:55 Completed Medications Generic Name Dose Route Start Last Admin Trade Name Freq PRN Reason Stop Dose Admin Acetaminophen 650 mg 06/16/23 22:26 Acetaminophen 325 Mg Tablet PO Q4H PRN Mild Pain Potassium Chloride 40 meq in 200 mls @ 50 mls/hr 06/16/23 19:58 06/16/23 21:06 Potassium Chloride 20 Meq/100 Ml Premix IV 06/16/23 23:57 50 mls/hr ONCE STA Administration Nicardipine/Sodium Chloride 20 mg in 200 mls @ 50 mls/hr 06/16/23 22:00 06/16/23 22:30 Cardene 20 Mg/200 Ml Nacl IV 2.5 mg/hr TITRATION JENNIFER 25 mls/hr Titration Protocol 5 MG/HR Ondansetron HCl 4 mg 06/16/23 22:26 Ondansetron Hcl/Pf 4 Mg/2 Ml Sdv IVP Q6H PRN Nausea / Vomiting Discontinued Medications Generic Name Dose Route Start Last Admin Trade Name Flores PRN Reason Stop Dose Admin Furosemide 40 mg 06/16/23 20:05 06/16/23 21:00 Furosemide Inj 40 Mg/4 Ml Vial IVP 06/16/23 20:06 40 mg ONCE STA Administration Acetaminophen 1,000 mg in 100 mls @ 400 mls/hr 06/16/23 19:07 06/16/23 19:26 Acetaminophen IV 06/16/23 19:21 400 mls/hr ONCE STA Administration 19:54 - Notified that lab is unable to run d-dimer at this time. Will order CTA- chest to rule-out PE with further characterization of lung architecture given h/o lung sarcoidosis. Vital Signs: Temp Pulse Resp BP Pulse Ox 06/16/23 20:27 198/98 H 06/16/23 20:26 68 16 202/98 H 96 06/16/23 19:56 98.6 F 63 18 189/91 H 95 06/16/23 18:43 98.6 F 84 16 218/99 H 96 Discharge Plan Discharge Patient Disposition: PLACED OBSERVATION Discharge Problem: Leg edema, Hypertensive emergency, Sarcoidosis of lung Did you review [place] [employer]AF[employer] DEPOSIT for ALL controlled substances?: Not Applicable ED Provider: EDWAR FERGUSON Condition: Stable Physician Progress Note: 21:39 - Spoke with on-call hospitalist (Dr. Salinas) at [facility] regarding pt status and current workup and management for HTN emergency, SoB. Recommended admission at current hospital given acuity of care with on-call Cardiology. 21:49 - Spoke with pt's PCP/Adjunct Instructor Of Women'S Studies (Dr. Neal Vega) regarding pt status and current workup and management for HTN emergency, SoB. He is aware of pt's history of lung sarcoidosis and abnormal EKG (bifascicular block). Recommends admitting to hospitalist with Cardio consult. Recommends starting Cardene ggt, clonodine 0.1, decadron 4 mg. Agreed to follow pt while admitted. 22:02 - Spoke with on-call hospitalist (NAMRATA Montoya) regarding pt status and current workup and management for HTN emergency, SoB. Agreed to accept pt for admission for HTN emergency, SoB. Will continue further workup and management. 22:28 - Notified by nursing that after starting Cardene ggt 5 mg/hr that current BP 147/71. Instructed nursing to decrease Cardene to 2.5 mg/hr.
[2023-06-16] MEDS ORDERED: ACETAMINOPHEN 1,000 MG/100 ML BAG IV STA (19:07)
--- NOTE | 2023-06-16 19:22 | DI ---
EXAM: SINGLE, PORTABLE AP VIEW(S) CHEST. HISTORY: Dyspnea. Diminished left breath sounds. COMPARISON: 08/23/2016 TECHNIQUE: Single, portable AP view(s) of the chest. FINDINGS: Lungs: The lung voulmes are normal.The lungs are clear without consolidation or effusion. There are n o suspicious nodules. There is no pneumothorax. Cardiovascular: The heart is enlarged. The pulmonary vasculature is within normal limits.. The aort a is unremarkable. Kor[place]/Mediastinum: Normal. Osseous structures. Normal for age. IMPRESSION: No acute pulmonary disease.
[2023-06-16 19:24] LABS: BASOPHILS % (AUTO) 0.2 % (0.0-3.0); EOSINOPHILS # (AUTO) 0.2 K/ul (0.0-0.7); EOSINOPHILS % (AUTO) 1.7 % (0.0-7.0); HEMATOCRIT 38.2 % (37.0-47.0); HEMOGLOBIN 12.5 g/dl (12.0-16.0); IMMATURE GRANULOCYTE % (AUTO) 0.2 % (0.0-5.0); LYMPHOCYTES # (AUTO) 1.8 K/uL (0.60-3.4); LYMPHOCYTES % (AUTO) 14.3 (10.0-50.0); MEAN CORPUSCULAR HEMOGLOBIN 29.9 pg (27.0-31.0); MEAN CORPUSCULAR HGB CONC 32.7 (31.8-35.4); MEAN CORPUSCULAR VOLUME 91.4 fl (81.0-99.0); MONOCYTES # (AUTO) 0.8 K/uL (0.4-2.0); MONOCYTES % (AUTO) 6.6 (0-10); NEUTROPHILS # (AUTO) 9.8 K/ul (2.0-6.9); PLATELET COUNT 148 10^3/uL (140-440); RDW COEFFICIENT OF VARIATION 12.8 % (11.6-14.8); RED BLOOD COUNT 4.18 10^6/ul (4.20-5.40); WHITE BLOOD COUNT 12.72 K/ul (4.6-10.2)
[2023-06-16 19:32] LABS: ALANINE AMINOTRANSFERASE 23.9 U/L (0-35); ALBUMIN 4.17 g/dL (3.5-5.0); ALKALINE PHOSPHATASE 71.5 U/L (53-141); ASPARTATE AMINO TRANSFERASE 36.1 U/L (14-36); BILIRUBIN,TOTAL 0.67 mg/dL (0.2-1.3); BLOOD UREA NITROGEN 14.9 mg/dL (7-17); CALCIUM 9.93 mg/dL (8.4-10.2); CARBON DIOXIDE 26.7 mmol/L (22-30.0); CHLORIDE 106.2 mmol/L (98-107); CREATININE 0.79 mg/dL (0.60-1.30); GLUCOSE 105.1 mg/dL (74-106); POTASSIUM 3.31 mmol/L (3.5-5.1); SODIUM 139.1 mmol/L (134.5-145); TOTAL PROTEIN 7.45 g/dL (6.3-8.2)
[2023-06-16 19:47] LABS: TROPONIN I < 0.012 ng/ml (0.0000-0.120)
[2023-06-16 19:51] LABS: SARS COV-2 RNA RAPID NAAT NEGATIVE (NEGATIVE)
[2023-06-16 19:52] LABS: MOLECULAR FLU A NEGATIVE BY NAAT (NEGATIVE); MOLECULAR FLU B NEGATIVE BY NAAT (NEGATIVE); RSV MOLECULAR NEGATIVE BY NAAT (NEGATIVE)
[2023-06-16] MEDS ORDERED: POTASSIUM CHLORIDE 20 MEQ/100 ML PREMIX 40 MEQ/200 ML BAG IV STA (19:58)
[2023-06-16] MEDS ORDERED: LASIX IVP STA (20:05)
--- NOTE | 2023-06-16 21:23 | CT ---
EXAM: CHEST CTA WITH CONTRAST (PULMONARY ARTERY) HISTORY: Dyspnea. Lung sarcoidosis. TECHNIQUE: CTA acquisition of the chest from the thoracic inlet to the upper abdomen following IV con trast administration timed to filling of the pulmonary artery. IV Contrast: IV only.. 3D/MIP/VR images Yes. CT Dose Reduction Techniques Employed: Yes COMPARISON: 06/18/2017 FINDINGS: Lines, Tubes, Devices: None. Pulmonary Embolism: - Diagnostic quality: Adequate. - Central(Main/Lobar/Interlobar): No embolus. - Peripheral (Segmental/Subsegmental): No embolus. - Right ventricle/Left ventricle ratio (normal <0.9): Normal. Lung Parenchyma and Airways: Central airways are patent without endobronchial lesion. Stable linear opacity in the right middle lobe with calcification. Is unchanged prior studies and is appearance of scarring. No acute consolidation. No suspicious pulmonary nodule. Pleural Space: No pleural effusion. No pleural thickening. No pneumothorax. Thoracic Inlet, Mediastinum, and Kor[place]: Thyroid gland is normal. Multiple calcified mediastinal lymph nodes. There is a partially calcified subcarinal lymph node with a short axis measuring up to 1.7 c m.. Heart, Vessels, and Pericardium: -Aorta is normal in caliber with mild atherosclerotic calcifications. -Main pulmonary artery is normal in caliber. -The heart is globally enlarged.. -No significant valvular calcifications. -Heavy tri-vessel coronary calcifications. coronary artery calcifications, however exam is not optimi zed for evaluation. -No pericardial effusion or thickening. Bones and Soft Tissues: Visualized bones are within normal limits. Chest wall soft tissues are withi n normal limits. Upper Abdomen: Within normal limits. IMPRESSION: 1. No acute pulmonary embolus. 2. Stable opacity in the right middle lobe has appearance of scarring. This is similar to the previ ous study. 3. Multiple calcified mediastinal lymph nodes. 4. Heavy coronary artery calcifications. All CT scans are performed using dose optimization techniques as appropriate to the performed exam an d include at least one of the following: Automated exposure control, adjustment of the mA and/or kV according t o size, and the use of iterative reconstruction technique.
[2023-06-16] MEDS ORDERED: CARDENE 20 MG/200 ML NACL 20 MG/200 ML BAG IV SCH (22:00)
[2023-06-16] MEDS ORDERED: TYLENOL PO PRN (22:26)
[2023-06-16] MEDS ORDERED: ZOFRAN 4 MG/2 ML IVP PRN (22:26)
[2023-06-17 00:37] VITALS: BMI 30.4
[2023-06-17 05:30] LABS: BASOPHILS % (AUTO) 0.4 % (0.0-3.0); EOSINOPHILS # (AUTO) 0.3 K/ul (0.0-0.7); EOSINOPHILS % (AUTO) 3.4 % (0.0-7.0); HEMATOCRIT 37.1 % (37.0-47.0); HEMOGLOBIN 11.9 g/dl (12.0-16.0); IMMATURE GRANULOCYTE % (AUTO) 0.2 % (0.0-5.0); LYMPHOCYTES # (AUTO) 1.9 K/uL (0.60-3.4); LYMPHOCYTES % (AUTO) 20.2 (10.0-50.0); MEAN CORPUSCULAR HEMOGLOBIN 29.4 pg (27.0-31.0); MEAN CORPUSCULAR HGB CONC 32.1 (31.8-35.4); MEAN CORPUSCULAR VOLUME 91.6 fl (81.0-99.0); MONOCYTES # (AUTO) 0.7 K/uL (0.4-2.0); MONOCYTES % (AUTO) 7.3 (0-10); NEUTROPHILS # (AUTO) 6.4 K/ul (2.0-6.9); NEUTROPHILS % (AUTO) 68.5 % (42.2-75.2); PLATELET COUNT 142 10^3/uL (140-440); RDW COEFFICIENT OF VARIATION 12.8 % (11.6-14.8); RED BLOOD COUNT 4.05 10^6/ul (4.20-5.40); WHITE BLOOD COUNT 9.33 K/ul (4.6-10.2)
[2023-06-17 05:41] LABS: ALANINE AMINOTRANSFERASE 21.7 U/L (0-35); ALBUMIN 3.92 g/dL (3.5-5.0); ALKALINE PHOSPHATASE 71.5 U/L (53-141); ASPARTATE AMINO TRANSFERASE 30.7 U/L (14-36); BILIRUBIN,TOTAL 0.82 mg/dL (0.2-1.3); BLOOD UREA NITROGEN 12.3 mg/dL (7-17); CALCIUM 9.28 mg/dL (8.4-10.2); CARBON DIOXIDE 30.7 mmol/L (22-30.0); CHLORIDE 103.9 mmol/L (98-107); CREATININE 0.69 mg/dL (0.60-1.30); GLUCOSE 101.2 mg/dL (74-106); POTASSIUM 3.33 mmol/L (3.5-5.1); SODIUM 138.5 mmol/L (134.5-145); TOTAL PROTEIN 7.02 g/dL (6.3-8.2)
[2023-06-17] MEDS ORDERED: K-DUR PO ONE (08:22)
[2023-06-17] MEDS ORDERED: NON-FORMULARY MEDICATION (Ferrous Sulfate 325 mg (65 mg iron) tablet) PO SCH (08:30)
[2023-06-17] MEDS ORDERED: NON-FORMULARY MEDICATION (Cholecalciferol (Vitamin D3) 50 mcg (2,000 unit) capsule) PO SCH (08:30)
[2023-06-17] MEDS ORDERED: NON-FORMULARY MEDICATION (Losartan-Hydrochlorothiazide 100-25 mg tablet) PO SCH (08:30)
[2023-06-17] MEDS ORDERED: DECADRON IVP ONE (08:55)
[2023-06-17] MEDS ORDERED: CHLORASEPTIC SPRAY MM PRN (08:58)
[2023-06-17] MEDS ORDERED: CATAPRES PO PRN (09:23)
[2023-06-17] MEDS: ASPIRIN EC PO SCH (09:38)
[2023-06-17] MEDS: VITAMIN D PO SCH (09:38)
[2023-06-17] MEDS: DITROPAN PO SCH ×2 (09:38→21:10)
[2023-06-17] MEDS: K-DUR PO SCH ×2 (09:39→18:12)
[2023-06-17] MEDS: FERROUS SULFATE PO SCH (09:39)
[2023-06-17] MEDS: HYZAAR 50-12.5 MG TAB PO SCH (09:39)
[2023-06-17] MEDS: NEURONTIN PO SCH ×2 (09:40→21:10)
[2023-06-17] MEDS ORDERED: APRESOLINE PO ONE (15:02)
[2023-06-17] MEDS ORDERED: CALAN SR PO SCH (15:30)
[2023-06-17] MEDS: CHLORASEPTIC SPRAY MM PRN (15:59)
[2023-06-17] MEDS ORDERED: APRESOLINE PO SCH (21:00)
[2023-06-17] MEDS ORDERED: LIPITOR PO SCH (21:00)
[2023-06-18] MEDS: CHLORASEPTIC SPRAY MM PRN (02:43)
[2023-06-18 05:37] LABS: BASOPHILS % (AUTO) 0.2 % (0.0-3.0); EOSINOPHILS # (AUTO) 0.1 K/ul (0.0-0.7); HEMATOCRIT 37.2 % (37.0-47.0); IMMATURE GRANULOCYTE % (AUTO) 0.3 % (0.0-5.0); LYMPHOCYTES # (AUTO) 1.7 K/uL (0.60-3.4); LYMPHOCYTES % (AUTO) 14.9 (10.0-50.0); MEAN CORPUSCULAR HEMOGLOBIN 29.8 pg (27.0-31.0); MEAN CORPUSCULAR HGB CONC 32.3 (31.8-35.4); MEAN CORPUSCULAR VOLUME 92.3 fl (81.0-99.0); MONOCYTES # (AUTO) 0.6 K/uL (0.4-2.0); MONOCYTES % (AUTO) 5.2 (0-10); NEUTROPHILS % (AUTO) 78.4 % (42.2-75.2); PLATELET COUNT 157 10^3/uL (140-440); RDW COEFFICIENT OF VARIATION 12.8 % (11.6-14.8); RED BLOOD COUNT 4.03 10^6/ul (4.20-5.40); WHITE BLOOD COUNT 11.49 K/ul (4.6-10.2)
[2023-06-18 05:57] LABS: ALANINE AMINOTRANSFERASE 20.7 U/L (0-35); ALBUMIN 3.91 g/dL (3.5-5.0); ALKALINE PHOSPHATASE 74.1 U/L (53-141); ASPARTATE AMINO TRANSFERASE 28.6 U/L (14-36); BILIRUBIN,TOTAL 0.7 mg/dL (0.2-1.3); BLOOD UREA NITROGEN 19.3 mg/dL (7-17); CALCIUM 9.97 mg/dL (8.4-10.2); CARBON DIOXIDE 25.7 mmol/L (22-30.0); CHLORIDE 108.3 mmol/L (98-107); CREATININE 0.72 mg/dL (0.60-1.30); GLUCOSE 123.1 mg/dL (74-106); POTASSIUM 3.66 mmol/L (3.5-5.1); TOTAL PROTEIN 6.96 g/dL (6.3-8.2)
--- NOTE | 2023-06-18 08:18 | PCM.PROG ---
Attending Provider: ATTENDING PROVIDER: Dr. ANDRES VEGA MD This patient is seen with Jasmyne Watkins, Nurse Practitioner. DATE OF SERVICE: 06/18/23 SUBJECTIVE: This 73 year old AA/BLACK F was hospitalized 06/17/23.Resting comfortably, still coughing. No fever. Blood pressure has been 160-170 systolic. No chest pain, no shortness of breath. Respiratory panel still pending. Yesterdays Echo with Dr. Vega showed worsening Aortic stenosis. REVIEW OF SYSTEMS: CONSTITUTIONAL: No night sweats. Fatigue. No fever or chills. HEENT: Eyes: No visual changes. No eye pain. No eye discharge. ENT: Sore throat. No runny nose. No epistaxis. No sinus pain. No odynophagia. No congestion. RESPIRATORY: Cough, no congestion. No hemoptysis. No shortness of breath. CARDIOVASCULAR: No angina symptoms. No CHF symptoms. No atypical chest pain for CAD. No palpitations. No orthopnea.. GASTROINTESTINAL: No abdominal pain. No nausea or vomiting. No diarrhea or constipation. No hematemesis. No hematochezia. GENITOURINARY: No urgency. No frequency. No dysuria. No hematuria. No obstructive symptoms. No discharge. No pain. No significant abnormal bleeding. MUSCULOSKELETAL: No musculoskeletal pain; no joint swelling. NEUROLOGICAL: Awake, alert, oriented to time, place and person. No headache. No neck pain. No syncope. No seizures. No dizziness. PSYCHIATRIC: Not anxious. No depression. No suicidal thoughts. No homicidal thoughts. SKIN: No rash. No lesions. No wounds. ENDOCRINE: No unexplained weight loss. No weight gain. HEMATOLOGIC/LYMPHATIC: No anemia. No purpura. No petechiae. No prolonged or excessive bleeding. No palpable lymph nodes. PHYSICAL EXAMINATION: GENERAL: The patient is awake, alert and oriented, sitting in bed in no distress. VITAL SIGNS: Temperature 98.3 F, Pulse 55, Respiratory Rate 16, BP 160/76, Pulse Ox 97% HEENT: Head normocephalic, atraumatic. Eyes: Extraocular muscles are intact. Pupils are equal, round and reactive to light and accommodation. Ears: No lesions. Nose appeared normal. Throat: No exudate or erythema. NECK: Supple. No JVD, no carotid bruit. No lymphadenopathy or thyromegaly. LUNGS: Diminished breath sounds. Clear to auscultation. Percussion note normal. Chest symmetrical. HEART: S1, S2, no S3. Grade II/ systolic murmurs. No cyanosis or clubbing. No ascites. Pulses: Dorsalis pedis and posterior tibial pulses +1 to +2 both sides. ABDOMEN: Soft. Non-tender. Bowel sounds active. No CVA tenderness. No mass felt. EXTREMITIES: No edema. Full range of motion of all extremities, equal. NEUROLOGIC: No focal deficit. Cranial nerves II through XII are grossly intact. No headache. No double vision. SKIN: Not dry. Intact. Turgor-normal. LYMPHATIC: No palpable lymph nodes/no lymphedema. MUSCULOSKELETAL: Normal joints with no swelling. Muscle tone is normal. LAB REVIEW: 06/18/23 05:16 06/18/23 05:16 06/18/23 05:16: WBC 11.49 H, RBC 4.03 L, Hgb 12.0, Hct 37.2, MCV 92.3, MCH 29.8, MCHC 32.3, RDW Coeff of Peter 12.8, Plt Count 157, Immature Gran % (Auto) 0.3, N eut % (Auto) 78.4 H, Lymph % (Auto) 14.9, [place] % (Auto) 5.2, Eos % (Auto) 1.0, Baso % (Auto) 0.2, Neut # (Auto) 9.0 H, Lymph # (Auto) 1.7, [place] # (Auto) 0.6, Eos # (Auto) 0.1, Baso # (Auto) 0.0, Immature Gran # (Auto) 0.0, Sodium 139.0, Potassium 3.66, Chloride 108.3 H, Carbon Dioxide 25.7, Anion Gap 8.66, BUN 19.3 H, Creatinine 0.72, Estimated GFR (MDRD) 96.00, BUN/Creatinine Ratio 26.80, G lucose 123.1 H, Calcium 9.97, Total Bilirubin 0.70, AST 28.6, ALT 20.7, Alkaline Phosphatase 74.1, Total Protein 6.96, Albumin 3.91, Globulin 3.05, Albumin/Globulin Ratio 1.28 ASSESSMENT: Please see below. 1. Labile hypertension 2. Acute upper respiratory infection 3. Worsening aortic stenosis 4. History of Sarcoidosis PLAN: 1. Increase Hydralazine to 50mg TID 2. Refer to Dr. Piyush Whittington, CT surgery at [facility] for Aortic stenosis 3. Will continue to monitor Plan and coordination of the patient's care discussed in the presence of Safety Companion and nurse. SCRIBED BY: Holden BRITO scribed while in presence of service performed by Jasmyne Watkins APRN on 06/18/23 ([id number])
[2023-06-18] MEDS: HYZAAR 50-12.5 MG TAB PO SCH (08:42)
[2023-06-18] MEDS: DITROPAN PO SCH (08:42)
[2023-06-18] MEDS: FERROUS SULFATE PO SCH (08:43)
[2023-06-18] MEDS: NEURONTIN PO SCH (08:43)
[2023-06-18] MEDS: K-DUR PO SCH (08:43)
[2023-06-18] MEDS: VITAMIN D PO SCH (08:43)
[2023-06-18] MEDS: ASPIRIN EC PO SCH (08:43)
[2023-06-18] MEDS ORDERED: APRESOLINE PO SCH (09:00)
[2023-06-18] MEDS ORDERED: MINOXIDIL PO ONE (09:37)
[2023-06-18 13:58] VITALS: BP 157/67; PULSE 62; RESP 18; TEMP 98.2
--- NOTE | 2023-06-18 14:47 | ECHO2D ---
Date of Exam: 06/17/2023 Ordering Physician: DR. ANDRES ROSSI Room #: SCU1 Reason for Echo: HTN URGENCY, DYSLIPIDEMIA, AORTIC STENOSIS, LVH M-Mode Normal Adult Results LV Dimensions Normal Adult Results AoV Opening excursions >1.6 1.3 LVEDD-base- 3.5-5.8 4.7 Ao root dimensions 2.0-3.7 3.0 LVESD-base- 3.1-4.6 L. Atrium dimensions 1.9-3.8 4.4 Post. Wall thickness 0.8-1.1 1.4 IV septum (thickness) 0.7-1.2 1.4 Post. Wall excursion 0.72-1.3 NORMAL Septal motion NORMAL Systolic motion R. Ventricular cavity 1.5-2.0 NORMAL LVEF 60% 71% Paradoxical septal wall motion NORMAL 2-D : ENLARGED LEFT ATRIAL SIZE--CALCIFIC AORTIC VALVES--MILD TO MODERATE AORTIC STENOSIS, NORMAL LEFT VENTRICLE SIZE AND LEFT VENTRICLE CONTRACTILITY--MITRAL VALVE, TRICUSPID VALVE AND AORTIC VALVE =NORMAL, NO EFFUSION, NO THROMBUS M-MODE: MV: NORMAL AV: CALCIFIC AORTIC STENOSIS, MILD TO MODERATE 1.5 CM2 VALVULAR AREA BY PLANIMETRY TV: NORMAL PV: NORMAL CHAMBER SIZE: ENLARGED LEFT ATRIAL CAVITY WALL MOTION: NORMAL PERICARDIUM: NORMAL INTERPRETATION: 1. LEFT VENTRICLE HYPERTROPHY WITH ENLARGED LEFT ATRIAL CAVITY 2. CALCIFIC AORTIC STENOSIS, PLANIMETRY 1.5 CM2 3. NORMAL LEFT VENTRICLE CONTRACTILITY AND LEFT VENTRICLE SIZE MTDD
[2023-06-18] MEDS ORDERED: MINOXIDIL PO SCH (21:00)
[2023-06-18] MEDS ORDERED: CALAN SR PO SCH (21:00)
[2023-06-19] MEDS ORDERED: ASPIRIN EC PO SCH (07:30)
[2023-06-19] MEDS ORDERED: BENICAR PO SCH (09:00)
[2023-06-19] MEDS ORDERED: HYDROCHLOROTHIAZIDE PO SCH (09:00)
== END 2023-06-18 14:40 | disposition home or self-care (01) | DRG 305 ==
LOC: SCU 18:36 → ED 18:36 → SCU 23:21
PROVIDERS: ADMIT Internal Medicine; ATTEND Internal Medicine
DX: R60.0 Localized edema; Z20.822 Contact with and (suspected) exposure to COVID-19; I16.1 Hypertensive emergency; I10 Essential (primary) hypertension; D86.0 Sarcoidosis of lung; I45.2 Bifascicular block; J06.9 Acute upper respiratory infection, unspecified